=== PATIENT | female | born 1985 | race Hispanic/Latino ===

== ENCOUNTER 2017-06-03 19:33 | Emergency (ER) | payer MEDICAID ==
[2017-06-03 20:03] VITALS: BP 111/69
[2017-06-03 21:13] LABS: Alanine Aminotransferase 22 units/L (7-56); Albumin 3.9 g/dL (3.9-5); Albumin/Globulin Ratio 1.2 %; Alkaline Phosphatase 85 units/L (35-129); Anion Gap 19 mmol/L; BUN/Creatinine Ratio 18.57; Blood Urea Nitrogen 13 mg/dL (7-17); Calcium 9.2 mg/dL (8.4-10.2); Carbon Dioxide 22 mmol/L (22-30); Chloride 99.9 mmol/L (98-107); Glucose 86 mg/dL (65-100); Potassium 3.9 mmol/L (3.6-5.0); Sodium 137 mmol/L (137-145); Total Protein 7.2 g/dL (6.3-8.2)
[2017-06-03 21:35] LABS: Basophils % (Auto) 0.6 % (0.0-1.8); Eosinophils % (Auto) 3.5 % (0.0-4.3); Hematocrit 36.7 % (30.3-42.9); Hemoglobin 12.3 gm/dl (10.1-14.3); Mean Corpuscular HGB Conc 33 % (30-34); Mean Corpuscular Hemoglobin 30 pg (28-32); Mean Corpuscular Volume 91 fl (79-97); Platelet Count 412 K/mm3 (140-440); Red Blood Count 4.04 M/mm3 (3.65-5.03); Red Cell Distribution Width 14.8 % (13.2-15.2); White Blood Count 8.1 K/mm3 (4.5-11.0)
[2017-06-03 21:38] LABS: Bilirubin,Urine NEG (Negative); Blood,Urine LG (Negative); Ketones,Urine NEG (Negative); Leukocyte Esterase,Urine MOD (Negative); Mucus,Urine 1+ /HPF; Nitrite,Urine NEG (Negative); Urobilinogen,Urine < 2.0 mg/dL (<2.0)
[2017-06-03 21:39] LABS: RBC,Urine > 182.0 /HPF (0.0-6.0); WBC,Urine > 182.0 /HPF (0.0-6.0)
[2017-06-03] MEDS ORDERED: NACL 0.9% 1000 ML 1,000 ML IV ONE (23:59)
[2017-06-03] MEDS ORDERED: MORPHINE IV ONE (23:59)
--- NOTE | 2017-06-04 | Emergency Department Report ---
ED General Adult HPI - General Chief complaint: Abdominal Pain Stated complaint: POSS UTI/ABD PAIN Time Seen by Provider: 06/03/17 23:52 Source: patient, RN notes reviewed Mode of arrival: Ambulatory Limitations: No Limitations - History of Present Illness Initial comments: This is a 31-year-old female. She is previously unknown to me. The patient had a at [facility] on May 10. The patient presents to the ER today with lower abdominal pain that started 2 nights ago after she lifted up a heavy box. She reports that immediately after her , she had mild abdominal discomfort, but this had essentially improved. The abdominal pain got worse 2 nights ago as noted. She reports a burning and tearing sensation, is concerned that she ripped her muscle. There is no headache, neck pain, chest pain, nausea, vomiting or diarrhea. She is expressing vaginal bleeding, but this has improved since her section, and she also describes dysuria. The abdominal pain is sharp, worsens with palpation, leaning over, decreases with rest. -: Gradual Location: abdomen Radiation: non-radiation Quality: burning Consistency: intermittent Improves with: rest Worsens with: movement Associated Symptoms: other (per hpi) - Related Data Previous Rx's Medication Instructions Recorded Last Taken Type Sulfamethoxazole/Trimethoprim 1 each PO BID #14 tablet 07/11/16 Unknown Rx [Bactrim DS TAB] Nitrofurantoin Avery/M-Cryst 100 mg PO Q12HR #14 capsule 06/04/17 Unknown Rx [Macrobid CAP] Allergies Allergy/AdvReac Type Severity Reaction Status Date / Time No Known Allergies Allergy Unverified 07/11/16 07:49 ED Review of Systems ROS: Stated complaint: POSS UTI/ABD PAIN Other details as noted in HPI Constitutional: denies: fever, malaise Eyes: denies: vision change ENT: denies: epistaxis Respiratory: denies: cough Cardiovascular: denies: chest pain Gastrointestinal: abdominal pain Genitourinary: urgency Musculoskeletal: denies: back pain Skin: denies: lesions Neurological: denies: weakness Psychiatric: anxiety ED Past Medical Hx - Past Medical History Previous Medical History?: Yes Hx Asthma: Yes - Surgical History Past Surgical History?: Yes Additional Surgical History: C SECTION X 3 - Social History Smoking Status: Current Every Day Smoker Substance Use Type: None - Medications Home Medications: Home Medications Medication Instructions Recorded Confirmed Last Taken Type Sulfamethoxazole/Trimethoprim 1 each PO BID #14 tablet 07/11/16 Unknown Rx [Bactrim DS TAB] Nitrofurantoin Avery/M-Cryst 100 mg PO Q12HR #14 capsule 06/04/17 Unknown Rx [Macrobid CAP] ED Physical Exam - General Limitations: No Limitations General appearance: alert, in no apparent distress - Head Head exam: Present: atraumatic, normocephalic - Eye Eye exam: Present: normal appearance, EOMI. Absent: nystagmus - ENT ENT exam: Present: normal exam, normal orophraynx, mucous membranes moist, normal external ear exam - Neck Neck exam: Present: normal inspection, full ROM. Absent: tenderness, meningismus - Respiratory Respiratory exam: Present: normal lung sounds bilaterally. Absent: respiratory distress, wheezes, rales, rhonchi, stridor, chest wall tenderness - Cardiovascular Cardiovascular Exam: Present: regular rate, normal rhythm, normal heart sounds. Absent: bradycardia, tachycardia, irregular rhythm, systolic murmur, diastolic murmur, rubs, gallop - GI/Abdominal GI/Abdominal exam: Present: soft, tenderness, normal bowel sounds. Absent: distended, guarding, rebound, rigid, pulsatile mass - Extremities Exam Extremities exam: Present: normal inspection, full ROM, normal capillary refill. Absent: pedal edema, joint swelling, calf tenderness - Back Exam Back exam: Present: normal inspection, full ROM. Absent: tenderness, CVA tenderness (R), CVA tenderness (L), muscle spasm, paraspinal tenderness, vertebral tenderness - Neurological Exam Neurological exam: Present: alert, oriented X3, normal gait, other (Extraocular movements intact. Tongue midline. No facial droop. Facial sensation intact to light touch in the V1, V2, V3 distribution bilaterally. 5 and 5 strength in 4 extremities.. Sensation is intact to light touch in 4 extremities.). Absent : motor sensory deficit - Psychiatric Psychiatric exam: Present: normal affect, normal mood - Skin Skin exam: Present: warm, dry, intact, normal color. Absent: rash ED Course Vital Signs 06/03/17 19:58 Temperature 98.8 F Pulse Rate 88 Respiratory 18 Rate Blood Pressure 111/69 O2 Sat by Pulse 98 Oximetry ED Medical Decision Making - Lab Data Result diagrams: 06/03/17 20:34 06/03/17 20:34 Vital Signs 06/03/17 19:58 Temperature 98.8 F Pulse Rate 88 Respiratory 18 Rate Blood Pressure 111/69 O2 Sat by Pulse 98 Oximetry Lab Results 06/03/17 06/03/17 06/03/17 Range/Units 20:34 20:34 20:34 WBC 8.1 (4.5-11.0) K/mm3 RBC 4.04 (3.65-5.03) M/mm3 Hgb 12.3 (10.1-14.3) gm/dl Hct 36.7 (30.3-42.9) % MCV 91 (79-97) fl MCH 30 (28-32) pg MCHC 33 (30-34) % RDW 14.8 (13.2-15.2) % Plt Count 412 (140-440) K/mm3 Lymph % (Auto) 28.9 (13.4-35.0) % Avery % (Auto) 5.1 (0.0-7.3) % Eos % (Auto) 3.5 (0.0-4.3) % Baso % (Auto) 0.6 (0.0-1.8) % Lymph # 2.4 (1.2-5.4) K/mm3 Avery # 0.4 (0.0-0.8) K/mm3 Eos # 0.3 (0.0-0.4) K/mm3 Baso # 0.1 (0.0-0.1) K/mm3 Seg Neutrophils % 61.9 (40.0-70.0) % Seg Neutrophils # 5.0 (1.8-7.7) K/mm3 Sodium 137 (137-145) mmol/L Potassium 3.9 (3.6-5.0) mmol/L Chloride 99.9 (98-107) mmol/L Carbon Dioxide 22 (22-30) mmol/L Anion Gap 19 mmol/L BUN 13 (7-17) mg/dL Creatinine 0.7 (0.7-1.2) mg/dL Estimated GFR > 60 ml/min BUN/Creatinine Ratio 18.57 % Glucose 86 (65-100) mg/dL Calcium 9.2 (8.4-10.2) mg/dL Total Bilirubin 0.20 (0.1-1.2) mg/dL AST 17 (5-40) units/L ALT 22 (7-56) units/L Alkaline Phosphatase 85 (35-129) units/L Total Protein 7.2 (6.3-8.2) g/dL Albumin 3.9 (3.9-5) g/dL Albumin/Globulin Ratio 1.2 % HCG, Qual Negative (Negative) Urine Color (Yellow) Urine Turbidity (Clear) Urine pH (5.0-7.0) Ur Specific Coats (1.003-1.030) Urine Protein (Negative) mg/dL Urine Glucose (UA) (Negative) mg/dL Urine Ketones (Negative) mg/dL Urine Blood (Negative) Urine Nitrite (Negative) Urine Bilirubin (Negative) Urine Urobilinogen (<2.0) mg/dL Ur Leukocyte Esterase (Negative) Urine WBC (Auto) (0.0-6.0) /HPF Urine RBC (Auto) (0.0-6.0) /HPF U Epithel Cells (Auto) (0-13.0) /HPF Urine Mucus /HPF 06/03/17 Range/Units 21:18 WBC (4.5-11.0) K/mm3 RBC (3.65-5.03) M/mm3 Hgb (10.1-14.3) gm/dl Hct (30.3-42.9) % MCV (79-97) fl MCH (28-32) pg MCHC (30-34) % RDW (13.2-15.2) % Plt Count (140-440) K/mm3 Lymph % (Auto) (13.4-35.0) % Avery % (Auto) (0.0-7.3) % Eos % (Auto) (0.0-4.3) % Baso % (Auto) (0.0-1.8) % Lymph # (1.2-5.4) K/mm3 Avery # (0.0-0.8) K/mm3 Eos # (0.0-0.4) K/mm3 Baso # (0.0-0.1) K/mm3 Seg Neutrophils % (40.0-70.0) % Seg Neutrophils # (1.8-7.7) K/mm3 Sodium (137-145) mmol/L Potassium (3.6-5.0) mmol/L Chloride (98-107) mmol/L Carbon Dioxide (22-30) mmol/L Anion Gap mmol/L BUN (7-17) mg/dL Creatinine (0.7-1.2) mg/dL Estimated GFR ml/min BUN/Creatinine Ratio % Glucose (65-100) mg/dL Calcium (8.4-10.2) mg/dL Total Bilirubin (0.1-1.2) mg/dL AST (5-40) units/L ALT (7-56) units/L Alkaline Phosphatase (35-129) units/L Total Protein (6.3-8.2) g/dL Albumin (3.9-5) g/dL Albumin/Globulin Ratio % HCG, Qual (Negative) Urine Color Red (Yellow) Urine Turbidity Cloudy (Clear) Urine pH 6.0 (5.0-7.0) Ur Specific Coats 1.021 (1.003-1.030) Urine Protein 100 mg/dl (Negative) mg/dL Urine Glucose (UA) Neg (Negative) mg/dL Urine Ketones Neg (Negative) mg/dL Urine Blood Lg (Negative) Urine Nitrite Neg (Negative) Urine Bilirubin Neg (Negative) Urine Urobilinogen < 2.0 (<2.0) mg/dL Ur Leukocyte Esterase Mod (Negative) Urine WBC (Auto) > 182.0 H (0.0-6.0) /HPF Urine RBC (Auto) > 182.0 (0.0-6.0) /HPF U Epithel Cells (Auto) 19.0 H (0-13.0) /HPF Urine Mucus 1+ /HPF - Medical Decision Making Differential diagnosis: Urinary tract infection, site dehiscence, abdominal wall strain, ventral hernia, postoperative infection Assessment and plan: 31-year-old female with lower abdominal tenderness and pain after twisting and heavy lifting mechanism. She is afebrile, with reassuring vital signs. Externally, the surgical site appears to be a healing well, with no redness, pus or streaking. She most likely has a strain of the anterior abdominal wall, with a concurrent urinary tract infection. I did recommend a CT scan of the abdomen and pelvis to exclude surgical disease, however the patient eloped prior to the completion of the CT scan. I contacted the patient on the listed phone number, and left a voicemail instructing her to return to the ER right away. During my evaluation, the patient was alert and oriented 3, and exhibited decision-making capacity, and was free from distracting injury. The patient was clinically sober, and did not appear to be under any undue influence. Critical care attestation.: If time is entered above; I have spent that time in minutes in the direct care of this critically ill patient, excluding procedure time. ED Disposition Clinical Impression: Lower abdominal pain, Dysuria Disposition: ELOPED Is pt being admited?: No Does the pt Need Aspirin: No Condition: Stable Instructions: Abdominal Pain (ED) Prescriptions: Nitrofurantoin Avery/M-Cryst [Macrobid CAP] 100 mg PO Q12HR #14 capsule Referrals: PRIMARY CARE, [Primary Care Provider] - 3-5 Days
== END 2017-06-04 00:53 | disposition left against medical advice (07) ==
LOC: ED 19:33
DX: R30.0 Dysuria (principal); R10.30 Lower abdominal pain, unspecified; J45.909 Unspecified asthma, uncomplicated; F17.200 Nicotine dependence, unspecified, uncomplicated
CPT/HCPCS: 36415; 80053; 81001; 84703; 85025; 99283

== ENCOUNTER 2017-06-05 14:53 | Emergency (ER) | payer MEDICAID ==
[2017-06-05 15:14] VITALS: BP 110/66
--- NOTE | 2017-06-05 16:35 | Cat Scan Report ---
FINAL REPORT EXAM: CT ABDOMEN PELVIS WO CON HISTORY: s/p C Section incision site pain and erythema TECHNIQUE: CT examination of the abdomen and pelvis without IV contrast PRIORS: None. FINDINGS: Normal noncontrast appearance of the gallbladder, adrenals, pancreas, and spleen. Normal caliber abdominal aorta and IVC. Normal-appearing kidneys and visualized ureteral segments. Very small fat containing umbilical hernia. No inguinal hernia. Slight liver enlargement with sagittal dimension of the right lobe at 19.2 cm. No focal liver lesion. In the pelvis, there is nonspecific thickening of the abdominal wall musculature with adjacent fat stranding. This is likely postoperative change. The fat stranding may be edema, inflammation, or infection but there is no well-defined fluid collection to suggest abscess. Normal-appearing stomach and duodenum. No small bowel distention in the abdomen and pelvis. No pelvic free fluid. Normal-appearing urinary bladder and rectum. No definite sigmoid colon abnormality. Enlarged uterus is most compatible with history of status. Sagittal dimension is 14.5 cm. Bilateral surgical clips may reflect tubal ligation. No gross ascites, free air, or colonic distention. Normal-appearing cecum, terminal ileum, and retrocecal appendix. IMPRESSION: Thickened anterior pelvic abdominal wall most compatible with postoperative change given history of . Fat stranding in this region may reflect edema, inflammation, or infection but there is no well-defined fluid collection to suggest abdominal wall abscess. Slight hepatomegaly, nonspecific Enlarged uterus is likely from status
[2017-06-05 16:47] LABS: Basophils % (Auto) 0.6 % (0.0-1.8); Eosinophils % (Auto) 4.3 % (0.0-4.3); Hematocrit 35.9 % (30.3-42.9); Hemoglobin 11.9 gm/dl (10.1-14.3); Mean Corpuscular HGB Conc 33 % (30-34); Mean Corpuscular Hemoglobin 30 pg (28-32); Mean Corpuscular Volume 90 fl (79-97); Platelet Count 344 K/mm3 (140-440); Red Blood Count 3.99 M/mm3 (3.65-5.03); Red Cell Distribution Width 14.8 % (13.2-15.2); White Blood Count 7.1 K/mm3 (4.5-11.0)
[2017-06-05 16:50] LABS: Alanine Aminotransferase 20 units/L (7-56); Albumin 3.6 g/dL (3.9-5); Albumin/Globulin Ratio 1.3 %; Alkaline Phosphatase 79 units/L (35-129); Anion Gap 16 mmol/L; BUN/Creatinine Ratio 14.28; Blood Urea Nitrogen 10 mg/dL (7-17); Carbon Dioxide 25 mmol/L (22-30); Chloride 102.6 mmol/L (98-107); Glucose 91 mg/dL (65-100); Sodium 140 mmol/L (137-145); Total Protein 6.4 g/dL (6.3-8.2)
--- NOTE | 2017-06-05 17:00 | Emergency Department Report ---
Entered by MARIA M HAYS, acting as scribe for ROBIN MENDOZA NP. ED General Adult HPI - General Chief complaint: Skin/Abscess/Foreign Body Stated complaint: INCISION PAIN /POSS UTI Time Seen by Provider: 06/05/17 15:33 Source: patient Mode of arrival: Ambulatory Limitations: No Limitations - History of Present Illness Initial comments: 31 y/o female presents to the ED c/o intermittent pain to incisional area that tobias 4 days ago. Associated symptoms include frequency and dysuria but she denies fever, chills, vomiting, nausea, discharge and bleeding. Patient states she had a 4 weeks ago and pain began after lifting some boxes. Uses tobacco products. No alleviating or aggravating factors. NKDA. Onset/Timin -: days(s) Location: abdomen (suprapubic pain to incisional area) Radiation: non-radiation Consistency: intermittent Improves with: none Worsens with: none Associated Symptoms: other (frequency/dysuria, no discharge/bleeding). denies: fever/chills, nausea/vomiting Treatments Prior to Arrival: none - Related Data Previous Rx's Medication Instructions Recorded Last Taken Type Cephalexin [Keflex] 500 mg PO Q8HR #30 cap 06/05/17 Unknown Rx Fluconazole [Diflucan TAB] 150 mg PO ONCE #1 tablet 06/05/17 Unknown Rx Ibuprofen [Motrin 800 MG tab] 800 mg PO Q8HR PRN #30 tablet 06/05/17 Unknown Rx Allergies Allergy/AdvReac Type Severity Reaction Status Date / Time No Known Allergies Allergy Verified 06/05/17 15:07 ED Review of Systems Comment: All other systems reviewed and negative Constitutional: denies: chills, fever Gastrointestinal: abdominal pain (suprapubic pain to incisional area ). denies : nausea, vomiting Genitourinary: dysuria, frequency. denies: discharge, other (bleeding) ED Past Medical Hx - Past Medical History Hx Asthma: Yes - Surgical History Additional Surgical History: C SECTION X 3 - Social History Smoking Status: Current Every Day Smoker Substance Use Type: None - Medications Home Medications: Home Medications Medication Instructions Recorded Confirmed Last Taken Type Cephalexin [Keflex] 500 mg PO Q8HR #30 cap 06/05/17 Unknown Rx Fluconazole [Diflucan TAB] 150 mg PO ONCE #1 tablet 06/05/17 Unknown Rx Ibuprofen [Motrin 800 MG tab] 800 mg PO Q8HR PRN #30 tablet 06/05/17 Unknown Rx ED Physical Exam - General Limitations: No Limitations General appearance: alert, in no apparent distress - Head Head exam: Present: atraumatic, normocephalic, normal inspection - Eye Eye exam: Present: normal appearance, PERRL, EOMI Pupils: Present: normal accommodation - ENT ENT exam: Present: normal exam, normal orophraynx, mucous membranes moist, TM's normal bilaterally, normal external ear exam - Neck Neck exam: Present: normal inspection, full ROM. Absent: tenderness, meningismus, lymphadenopathy, thyromegaly - Respiratory Respiratory exam: Present: normal lung sounds bilaterally. Absent: respiratory distress, wheezes, rales, rhonchi, chest wall tenderness, accessory muscle use - Cardiovascular Cardiovascular Exam: Present: regular rate, normal rhythm, normal heart sounds. Absent: systolic murmur, diastolic murmur, rubs, gallop - GI/Abdominal GI/Abdominal exam: Present: soft, tenderness, normal bowel sounds. Absent: guarding, rebound - Extremities Exam Extremities exam: Present: normal inspection, full ROM. Absent: tenderness, normal capillary refill, pedal edema, joint swelling, calf tenderness - Back Exam Back exam: Present: normal inspection, full ROM. Absent: tenderness, CVA tenderness (R), CVA tenderness (L), muscle spasm, paraspinal tenderness, vertebral tenderness, rash noted - Neurological Exam Neurological exam: Present: alert, oriented X3 - Psychiatric Psychiatric exam: Present: normal affect, normal mood - Skin Skin exam: Present: warm, dry, intact, normal color. Absent: rash ED Course Vital Signs 06/05/17 15:08 Temperature 98.7 F Pulse Rate 87 Respiratory 17 Rate Blood Pressure 110/66 O2 Sat by Pulse 99 Oximetry ED Medical Decision Making - Lab Data Result diagrams: 06/05/17 16:13 Laboratory Tests 06/05/17 16:13 WBC 7.1 RBC 3.99 Hgb 11.9 Hct 35.9 MCV 90 MCH 30 MCHC 33 RDW 14.8 Plt Count 344 Lymph % (Auto) 31.6 Johnston % (Auto) 7.5 H Eos % (Auto) 4.3 Baso % (Auto) 0.6 Lymph # 2.3 Johnston # 0.5 Eos # 0.3 Baso # 0.0 Seg Neutrophils % 56.0 Seg Neutrophils # 4.0 - Radiology Data Radiology results: report reviewed no acute findings no infection no definite abscess, - Medical Decision Making pt ia a 31 y/o w/f s/p c section 05/10/2017 who presents for incision site pain and erythema x 2 week pt denies fever or chills, no discharge no drainage, pt also endorse urinary frequency and urgency pt denies dysuria no no vaginal discharge pt advises that she is not sexually active, exam: transverse lower abdominal incision site edges well approximated moderate erythema mild pain to palpation , uA: wbc, bacteria, hcg: neg , ct abd/kpelvis no acute abscess or fluid collection , no 06/03/2017, cbc: wnl, cmp: wnl, this is local cellulitis , and uti will treat with keflex 500 mg po tid x 10 day for both pt will follow up with [employer] [facility]NAGER for incision check in 2 days , pt verbalized agreement and understanding of same. pt advised pain reduced 2/10 a this time. ED Disposition Clinical Impression: Wound cellulitis after surgery Qualifiers: Encounter type: initial encounter Qualified Code(s): T81.4XXA - Infection following a procedure, initial encounter UTI (urinary tract infection) Qualifiers: Urinary tract infection type: acute cystitis Hematuria presence: without hematuria Qualified Code(s): N30.00 - Acute cystitis without hematuria Disposition: - TO HOME OR SELFCARE Is pt being admited?: No Does the pt Need Aspirin: No Condition: Good Instructions: Cellulitis (ED), Urinary Tract Infection in Women (ED) Prescriptions: Cephalexin [Keflex] 500 mg PO Q8HR #30 cap Fluconazole [Diflucan TAB] 150 mg PO ONCE #1 tablet Ibuprofen [Motrin 800 MG tab] 800 mg PO Q8HR PRN #30 tablet PRN Reason: Pain Forms: Work/School Release Form(ED) Time of Disposition: 16:59 This documentation as recorded by the SAÚL woo ELIZABETH,accurately reflects the service I personally performed and the decisions made by , ROBIN MENDOZA, KEYUR.
[2017-06-05 17:42] LABS: Bacteria,Urine 1+ /HPF (Negative); Bilirubin,Urine NEG (Negative); Blood,Urine LG (Negative); Ketones,Urine NEG (Negative); Leukocyte Esterase,Urine TR (Negative); Mucus,Urine 1+ /HPF; Nitrite,Urine NEG (Negative); Protein,Urine <15 mg/dL mg/dL (Negative); Urobilinogen,Urine < 2.0 mg/dL (<2.0)
== END 2017-06-05 17:40 | disposition home or self-care (01) ==
LOC: ED 14:53
DX: T81.4XXA Infection following a procedure, initial encounter (principal); N30.00 Acute cystitis without hematuria; Y92.9 Unspecified place or not applicable; J45.909 Unspecified asthma, uncomplicated; F17.200 Nicotine dependence, unspecified, uncomplicated
CPT/HCPCS: 36415; 74176; 80053; 81001; 85025; 99284